=== PATIENT | female | born 1980 | race Caucasian/White ===

== ENCOUNTER 2021-05-21 19:35 | Emergency (ER) | payer SELFPAY ==
[2021-05-21 20:02] VITALS: BP 158/87; PULSE 80; RESP 16; TEMP 36.9; O2SAT 94; BMI 26.8
--- NOTE | 2021-05-21 20:08 | ECG_ITS ---
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 Measurements Intervals [place] Rate: 95 P: 37 WA: 140 QRS: 63 QRSD: 89 T: 54 QT: 356 QTc: 449 Interpretive Statements SINUS RHYTHM No previous ECG available for comparison Electronically Signed On 05-22-2021 20:34:17 CDT by Kurt Huddleston M.D. [id number]
[2021-05-21 22:07] VITALS: BP 125/79; PULSE 105; RESP 18; O2SAT 97
--- NOTE | 2021-05-21 22:20 | ED_ITS ---
HPI - Chest Pain General: Chief Complaint: Chest Pain Stated Complaint: Left Side Abd Pain\Sores in Mouth Time Seen by Provider: 05/21/21 22:02 Source: patient Mode of arrival: ambulatory Limitations: no limitations History of Present Illness: HPI narrative: 41-year-old female is a former IV drug user states she been clean and then relapsed over the weekend. States she used methamphetamine over the weekend. Patient here is very anxious and obviously the appearance of meth. States she has a sore in her mouth has been having vomiting. Denies any chest pain. Denies any worsening proving factors. Associated symptoms: Deny abdominal pain, dyspnea, fever(s), nausea or vomiting Review of Systems Const: Denies: fever(s), chills, body aches or change in appetite Eyes: Denies: blurry vision or eye discomfort ENMT: Denies: throat pain or dental pain Card: Denies: chest pain Resp: Denies: dyspnea GI: Denies: abdominal pain, nausea, vomiting or diarrhea : Denies: dysuria Musc: Denies: neck pain or back pain Skin/Breast: Denies: rash Neuro: Denies: headache(s) Psych: Denies: depression Italo/Lymph: Denies: easy bruising All/Imm: Denies: urticaria Physical Exam Const: COMMON NORMALS: no acute distress and patient oriented x3 GENERAL APPEARANCE: anxious and disheveled HENMT: COMMON NORMALS: normocephalic and atraumatic HEAD & SCALP: normocephalic and atraumatic Eye: COMMON NORMALS: Equal, round and reactive pupils present and EOMs intact bilaterally PUPIL: Yes Equal, round and reactive pupils present Neck/C-Spine: COMMON NORMALS: full ROM and supple Chest: COMMONS NORMALS: normal inspection of the chest and normal palpation of entire chest wall Resp: COMMON NORMALS: normal respiratory effort, No retractions, No use of accessory muscles and clear to auscultation bilaterally AUSCULTATION: clear to auscultation bilaterally Cardio: COMMON NORMALS: regular rate, regular rhythm and No murmurs present (Cardio) RATE: regular rate RHYTHM: regular rhythm GI: COMMON NORMALS: Normal to inspection, nondistended, normoactive bowel sounds present, Soft to palpation, non-tender and no masses PALPATION: Yes Soft to palpation Extremity: COMMON NORMALS: normal to inspection and full ROM Neuro: COMMON NORMALS: patient oriented x3, moves all extremities and no focal motor deficits Psych: COMMON NORMALS: mental status grossly normal, Normal thought process present and cooperative SPEECH: Yes rapid THOUGHT PROCESS: Normal thought process present Skin: COMMON NORMALS: no rashes or lesions noted and no wounds GENERAL SKIN EXAM: no rashes or lesions noted Course Vital Signs: Vital signs: Vital Signs Temperature 98.5 F 05/21/21 22:37 Pulse Rate 91 05/21/21 23:20 Respiratory Rate 20 H 05/21/21 23:20 Blood Pressure 98/63 05/21/21 23:20 Pulse Oximetry 97 05/21/21 23:20 MDM - Chest Pain MDM Narrative: Medical decision making narrative: Patient presents here with vomiting along with recent methamphetamine abuse. Believe all of her symptoms are likely from her methamphetamine abuse. Patient's blood work here is normal and she feels much improved after Ativan. She had no actual chest pain. EKG here is normal. She is stable for discharge is to follow-up with PCP and return if worsening. Lab Data: Labs: Lab Results 05/21/21 05/21/21 05/21/21 Range/Units 22:14 22:14 22:14 WBC 7.4 (4.0-10.0) 10^3/ uL RBC 4.05 L (4.1-5.3) 10^6/u L Hgb 12.5 (11.5-15.3) g/dL Hct 36.7 L (37.0-47.0) % MCV 90.6 (81-99) fl MCH 30.9 (28.0-34.0) pg MCHC 34.1 (30.0-36.0) g/dL RDW 11.8 L (12.1-15.1) % Plt Count 241 (130-400) 10^3/c mm MPV 10.3 (7.4-10.4) fL Neut % (Auto) 64.8 % Lymph % (Auto) 21.6 % [place] % (Auto) 12.0 % Eos % (Auto) 0.8 % Baso % (Auto) 0.5 % Neut # (Auto) 4.80 (1.8-7.7) 10^3/u L Lymph # (Auto) 1.6 (0.8-4.8) 10^3/u L [place] # (Auto) 0.9 (0.2-0.9) 10^3/u L Eos # (Auto) 0.1 (0.0-0.8) 10^3/u L Baso # (Auto) 0.0 (0.0-0.1) 10^3/u L Nucleated RBC % (a uto) 0 % Nucleated RBCs # 0.0 /100WBC Sodium 137 (136-145) mmol/L Potassium 4.1 (3.5-5.1) mmol/L Chloride 101 (98-107) mmol/L Carbon Dioxide 25 (22-29) mmol/L Anion Gap 15.1 (5-19) BUN 9 (6-20) mg/dL Creatinine 0.7 (0.5-0.9) mg/dL GFR Calculation 93.2 (90-130) mL/min Glucose 98 (65-115) mg/dL Calculated Osmolal ity 283 L (285-295) mOsm/k g Calcium 9.1 (8.5-10.5) mg/dL Total Bilirubin 1.0 (0.15-1.2) mg/dL AST 19 (0-32) U/L ALT 11 (0-33) U/L Alkaline Phosphata se 78 (35-105) IU/L Total Protein 7.5 (6.6-8.7) g/dL Albumin 4.4 (3.5-5.2) g/dL Globulin 3.1 (1.3-4.6) g/dL Lipase 13 (13-60) U/L HCG, Qual Negative (Negative) EKG Data^: EKG 1: Attestation: I personally reviewed and interpreted this EKG as follows: EKG interpretation date: 05/21/21 EKG interpretation time: 20:11 Interpretation: nsr hr [address] or t wave abnormalities qrs 89 qtc 409 Discharge Plan Discharge Patient Disposition: Home Clinical Impression: Methamphetamine abuse Vomiting Qualifiers: Vomiting type: unspecified Vomiting Intractability: non-intractable Condition: Stable Prescriptions: New ondansetron 4 mg tablet,disintegrating 4 mg PO Q6H PRN (Reason: nausea and vomiting) Qty: 14 RF: 0 Discharge Orders: Discharge ED (Routine); Ordered 05/21/21 Ordered By: Cyndi Mayo Discharge Diet: Advance as tolerated Discharge Activity: Resume usual activity Patient Instructions: Methamphetamine Abuse (ED) Coding Level of Care Code ED Search Developer for Andreas Fwd Exam Comprehensive
[2021-05-21 22:21] LABS: Basophils % 0.5 %; Eosinophils # 0.1 10^3/uL (0.0-0.8); Eosinophils % 0.8 %; Hematocrit 36.7 % (37.0-47.0); Hemoglobin 12.5 g/dL (11.5-15.3); Lymphocytes # 1.6 10^3/uL (0.8-4.8); Lymphocytes % 21.6 %; Mean Corpuscular HGB Conc 34.1 g/dL (30.0-36.0); Mean Corpuscular Hemoglobin 30.9 pg (28.0-34.0); Mean Corpuscular Volume 90.6 fl (81-99); Mean Platelet Volume 10.3 fL (7.4-10.4); Monocytes # 0.9 10^3/uL (0.2-0.9); Neutrophils % 64.8 %; Nucleated Red Blood Cells % 0 %; Platelet Count 241 10^3/cmm (130-400); Red Blood Count 4.05 10^6/uL (4.1-5.3); Red Cell Distribution Width 11.8 % (12.1-15.1); White Blood Count 7.4 10^3/uL (4.0-10.0)
[2021-05-21] MEDS: LORazepam 2 mg/mL INJ 1 mL IVP (22:21)
[2021-05-21] MEDS: sodium chloride 0.9% 1,000 ML 999 ML IV (22:21)
[2021-05-21 22:32] LABS: HCG, Serum Qual Negative (Negative)
[2021-05-21 22:37] VITALS: BP 125/79; PULSE 105; RESP 18; TEMP 36.9; O2SAT 97
[2021-05-21 22:38] LABS: Alanine Aminotransferase 11 U/L (0-33); Albumin Level 4.4 g/dL (3.5-5.2); Alkaline Phosphatase 78 IU/L (35-105); Anion Gap 15.1 (5-19); Aspartate Amino Transferase 19 U/L (0-32); Blood Urea Nitrogen 9 mg/dL (6-20); Calcium 9.1 mg/dL (8.5-10.5); Carbon Dioxide 25 mmol/L (22-29); Chloride 101 mmol/L (98-107); Globulin 3.1 g/dL (1.3-4.6); Glomerular Filtration Rate 93.2 mL/min (90-130); Glucose 98 mg/dL (65-115); Lipase 13 U/L (13-60); Osmolality Calculated 283 mOsm/kg (285-295); Potassium 4.1 mmol/L (3.5-5.1); Sodium 137 mmol/L (136-145); Total Protein 7.5 g/dL (6.6-8.7)
[2021-05-21 23:20] VITALS: BP 98/63; PULSE 91; RESP 20; O2SAT 97
== END 2021-05-21 23:05 | disposition home or self-care (01) ==
PROVIDERS: Emergency Provider Emergency Medicine
DX: F15.10 Other stimulant abuse, uncomplicated (principal); R11.11 Vomiting without nausea
CPT/HCPCS: 80053; 83690; 84703; 85025; 93005; 96361; 96374; 99284; J2060; J7030

== ENCOUNTER 2021-05-22 04:38 | Emergency (ER) | payer SELFPAY ==
--- NOTE | 2021-05-22 04:50 | ED_ITS ---
HPI - General Adult General: Chief complaint: General Medical Stated complaint: Pt thinks she has worms Time Seen by Provider: 05/22/21 04:40 Source: patient Mode of arrival: ambulatory Limitations: no limitations History of Present Illness: HPI narrative: 41-year-old female who was seen earlier and has been abusing methamphetamine. Patient's been sitting on the waiting room all night and has not been able to get a ride home yet. She states that she feels like she has worms in her mouth and ate Jell-O and saw something in the gel and was concerned. She denies any fever. Denies any SI or HI. Patient does appear anxious but she is able answer most my questions appropriately. Associated symptoms: Deny chest pain, dyspnea, headache(s), nausea, rash or vomiting Review of Systems Const: Denies: fever(s), chills, body aches or change in appetite Eyes: Denies: blurry vision or eye discomfort ENMT: Denies: throat pain or dental pain Card: Denies: chest pain Resp: Denies: dyspnea GI: Denies: abdominal pain, nausea, vomiting or diarrhea : Denies: dysuria Musc: Denies: neck pain or back pain Skin/Breast: Denies: rash Neuro: Denies: headache(s) Psych: Reports: anxiety; Denies: depression Italo/Lymph: Denies: easy bruising All/Imm: Denies: urticaria Physical Exam Const: COMMON NORMALS: patient oriented x3 GENERAL APPEARANCE: anxious and disheveled HENMT: COMMON NORMALS: normocephalic and atraumatic HEAD & SCALP: normocephalic and atraumatic OTHER: No abnormalities or sores in her mouth Eye: COMMON NORMALS: Equal, round and reactive pupils present and EOMs intact bilaterally PUPIL: Yes Equal, round and reactive pupils present Neck/C-Spine: COMMON NORMALS: full ROM and supple Chest: COMMONS NORMALS: normal inspection of the chest and normal palpation of entire chest wall Resp: COMMON NORMALS: normal respiratory effort, No retractions, No use of accessory muscles and clear to auscultation bilaterally AUSCULTATION: clear to auscultation bilaterally Cardio: COMMON NORMALS: regular rate, regular rhythm and No murmurs present (Cardio) RATE: regular rate RHYTHM: regular rhythm GI: COMMON NORMALS: Normal to inspection, nondistended, normoactive bowel sounds present, Soft to palpation, non-tender and no masses PALPATION: Yes Soft to palpation Extremity: COMMON NORMALS: normal to inspection and full ROM Neuro: COMMON NORMALS: patient oriented x3, moves all extremities and no focal motor deficits Psych: COMMON NORMALS: mental status grossly normal and cooperative THOUGHT PROCESS: disorganized Skin: COMMON NORMALS: no rashes or lesions noted and no wounds GENERAL SKIN EXAM: no rashes or lesions noted MDM - General Adult MDM Narrative: Medical decision making narrative: Patient presents here with methamphetamine abuse. Not seen any open sores or anything in her mouth. Patient is stable for discharge at this time. She is not a threat to herself or others and is stable for discharge. Discharge Plan Discharge Patient Disposition: Home Clinical Impression: Methamphetamine abuse Condition: Stable Prescriptions: No Action ondansetron 4 mg tablet,disintegrating 4 mg PO Q6H PRN (Reason: nausea and vomiting) Qty: 14 RF: 0 Discharge Orders: Discharge ED (Routine); Ordered 05/22/21 Ordered By: Cyndi Mayo Discharge Diet: Advance as tolerated Discharge Activity: Resume usual activity Patient Instructions: Methamphetamine Abuse (ED) Coding Level of Care Code ED Social Security Assessor for Sujatag Fwd Exam Comprehensive
== END 2021-05-22 05:00 | disposition home or self-care (01) ==
PROVIDERS: Emergency Provider Emergency Medicine
DX: F15.10 Other stimulant abuse, uncomplicated (principal)
CPT/HCPCS: 99281